=== PATIENT | female | born 1985 | race Two or more races ===

== ENCOUNTER 2022-05-10 11:45 | Emergency (ER) | payer MEDICAID ==
[~2022-05-10] VITALS: Ht 154.9 cm; Wt 92.7 kg
[2022-05-10 11:53] VITALS: BP 162/103
[2022-05-10] MEDS ORDERED: ibuprofen 200mg tablet PO ONE (12:30)
[2022-05-10] MEDS ORDERED: TAM75C PO (13:41)
== END 2022-05-10 13:57 | disposition home or self-care (01) ==
LOC: ER 11:46
DX: J10.1 Influenza due to other identified influenza virus with other respiratory manifestations (principal); Z20.822 Contact with and (suspected) exposure to COVID-19
CPT/HCPCS: 87502; 87503; 87635; 99283; C9803

== ENCOUNTER 2024-10-12 19:37 | Emergency (ER) | payer SELFPAY ==
[~2024-10-12] VITALS: Ht 154.9 cm; Wt 89.5 kg
[2024-10-12 19:38] VITALS: BP 144/93; PULSE 89; RESP 16; O2SAT 98
[2024-10-12] MEDS ORDERED: FLUT9.9S BOTHNARES (19:49)
[2024-10-12] MEDS ORDERED: AMOX-580 PO (19:49)
[2024-10-12] MEDS ORDERED: PRED20TA PO (19:49)
--- NOTE | 2024-10-12 19:50 | Physician Documentation ---
History of Present Illness ~ Chief Complaint: Cough Stated Complaint: SINUS INFECTION Time Seen by MD: 19:45 Primary Medical Doctor: [facility] HPI 39-year-old female reports ER with chief complaint of nasal congestion. Patient states that she has had nasal congestion and postnasal drip for three days. Endorses ear pain as well. Endorses a very minimal cough. Denies fevers or chills. No other complaints at this time Medication Reconciliation Allergies: Coded Allergies: No Known Allergies (Unverified , 05/10/22) Past Medical History Past Medical History: No Pertinent History Past Surgical History: noncontributory Lives In: Home Occupation: employed Physical Exam Vital Signs: Temperature: 98.5, Source: Oral, Heart Rate: 89, Respiratory Rate: 16, BP: 144/93, Pulse Oximetry: 98, Weight: 89.550 Oxygen Flow Rate: 0 Physical Exam General: Well developed, well nourished, no distress. HEENT: Positive 1+ edema to bilateral tonsils with a exudates as well as postnasal drip and positive erythema to the posterior pharynx. Uvula is midline and negative for edema. Bilateral nares positive for erythema as well as purulent discharge. Positive LAD Neck: Full range of motion, supple. Respiratory: Lungs clear, no respiratory distress. Chest: No accessory muscle use, nontender. Cardiovascular: Regular rate and rhythm. Gastrointestinal: Soft, nontender, nondistended. Bowel sounds present. Extremities: Normal range of motion, nontender, normal capillary refill, no deformity. Back: No midline tenderness, no CVA tenderness. Neurologic: Oriented x4. Distal gross motor and sensory intact all four extremities. Moves all 4 extremities spontaneously. Psychiatric: Normal mood and affect. Skin: Normal color, warm and dry. No edema, no ecchymosis Progress Results/Orders Results/Orders Vital Signs 10/12/24 19:38 Temp 98.5 Pulse 89 Resp 16 B/P (MAP) 144/93 Pulse Ox 98 O2 Flow Rate 0 Medical Decision Making Additional info obtained from: old records Findings After detailed discussion and joint medical decision-making, diagnostic and imaging results were discussed with the patient. At this time patient we will be given Augmentin, prednisone as well as Flonase. Patient is advised to follow up with the primary care. Patient does have symptoms consistent with a strep pharyngitis but patient declined to have swabs given which is fair. ER precautions were given. Patient is stable upon discharge. All patient questions answered to satisfaction Differential Dx:Considerations: Include: Sinusitis (Sinusitis, strep throat), Other Departure Disposition: 01 HOME / SELF CARE / HOMELESS Impression: Primary Impression: Cough Additional Impressions: Sinusitis Pharyngitis Condition: Stable Discharge Instructions: Cough, Adult Referrals: NO PRIMARY CARE PROVIDER (PCP) Prescriptions Fluticasone Propionate (Flonase Allergy Relief) 50 Mcg/Actuation [place].susp 2 SPRAYS BOTHNARES DAILY for 30 Days, ML 0 Refills Prov: JEFF ATWOOD 10/12/24 Prednisone* (Prednisone*) 20 Mg Tablet 1 TAB PO Q12H for 5 Days, #10 TAB Prov: JEFF ATWOOD 10/12/24 Amox Tr/Potassium Clavulanate 875/125 MG (Augmentin 875/125 MG) 875 Mg-125 Mg Tablet 1 TAB PO Q12H for 10 Days, #20 TAB Prov: JEFF ATWOOD 10/12/24 Education Educated: Patient Educated regarding: diagnosis, treatment Signature Scribe Signature: none used Attestation: Scribed for Jeff Atwood by Jeff VILLAREAL . 10/12/24 19:49 JEFF ATWOOD October 12, 2024 19:50
[2024-10-12 19:51] VITALS: TEMP 98.5
[2024-10-12] MEDS ORDERED: FLUT16SP35 BOTHNARES (19:55)
== END 2024-10-12 19:57 | disposition home or self-care (01) ==
LOC: ER 19:37
DX: J32.9 Chronic sinusitis, unspecified (principal); J02.9 Acute pharyngitis, unspecified; R05.9 Cough, unspecified
CPT/HCPCS: 99283